=== PATIENT | male | born 1970 | race African-American/Black ===

== ENCOUNTER 2018-01-07 03:05 | Emergency (ER) | payer OTHER ==
[~2018-01-07] VITALS: Ht 172.7 cm; Wt 72.6 kg
[2018-01-07] MEDS ORDERED: NKM (03:09)
[2018-01-07] MEDS ORDERED: Augmentin 875mg Tab ORAL ONE (03:30)
[2018-01-07] MEDS ORDERED: Tetanus/Diptheria/Pertussis Vaccine 0.5ml Syr IM ONE (03:30)
[2018-01-07] MEDS ORDERED: Morphine Sulfate 4mg/ml Inj IM ONE (03:30)
[2018-01-07] MEDS ORDERED: Ketorolac 30mg Inj IM ONE (03:30)
[2018-01-07] MEDS ORDERED: Bacitracin Oint UD TOPIC ONE (03:45)
--- NOTE | 2018-01-07 03:55 | Emergency Room Report ---
History of Present Illness General Chief Complaint: Medical Clearance Source: Patient Present Illness HPI 47-year-old male presents ED for evaluation. Patient is in police custody. He is here for medical clearance. Per [employer] patient was bitten by their police dog during arrest. Tetanus unknown. Notes bite lowe to face, chest, right leg. Pain is throbbing, 10 out of 10, nonradiating. Denies any other injuries. No other aggravating or relieving factors. Denies any other associated symptoms Allergies: Coded Allergies: No Known Allergies (Unverified , 01/07/18) Patient History Past Medical History: psych hx Past Surgical History: none Pertinent Family History: none Social History: Denies: smoking, alcohol use, drug use Immunizations: UTD Reviewed Nursing Documentation: PMH: Agreed; PSxH: Agreed Nursing Documentation-PMH History Of Psychiatric Problem: Yes - PTSD Review of Systems All Other Systems: negative except mentioned in HPI Physical Exam Vital Signs Date Time Temp Pulse Resp B/P (MAP) Pulse Ox O2 Delivery O2 Flow Rate FiO2 01/07/18 03:05 98.0 115 16 141/98 97 Room Air 98.1 Sp02 EP Interpretation: reviewed, normal General Appearance: no apparent distress, alert, GCS 15, non-toxic Head: normocephalic, atraumatic Eyes: bilateral eye normal inspection, bilateral eye PERRL ENT: hearing grossly normal, normal pharynx, no angioedema, normal voice Neck: full range of motion, supple/symm/no masses Respiratory: chest non-tender, lungs clear, normal breath sounds, speaking full sentences Cardiovascular #1: regular rate, rhythm, no edema Cardiovascular #2: 2+ carotid (R), 2+ carotid (L), 2+ radial (R), 2+ radial (L) , 2+ dorsalis pedis (R), 2+ dorsalis pedis (L) Gastrointestinal: normal bowel sounds, non tender, soft, non-distended, no guarding, no rebound Rectal: deferred Genitourinary: normal inspection, no CVA tenderness Musculoskeletal: back normal, gait/station normal, normal range of motion, non- tender Neurologic: alert, oriented x3, responsive, motor strength/tone normal, sensory intact, speech normal Psychiatric: judgement/insight normal, memory normal, mood/affect normal, no suicidal/homicidal ideation Reflexes: 3+ bicep (R), 3+ bicep (L), 3+ tricep (R), 3+ tricep (L), 3+ knee (R) , 3+ knee (L) Skin: other - bite nickie to forehead, chest, abrasions - R knee Lymphatic: no adenopathy Medical Decision Making Diagnostic Impression: Primary Impression: Dog bite Qualified Codes: W54.0XXA - Bitten by dog, initial encounter Additional Impression: Medical clearance for incarceration ER Course Hospital Course 47-year-old male presents ED for intermediate clearance. Status post dog bite Differential diagnoses include: abscess, cellulitis, ankle fracture, dislocation Clinical course Patient placed on stretcher. After initial history and physical, wound is irrigated. I ordered pain medications, tetanus and augmentin Patient is medically clear for incarceration. I'll prescribe antibiotics Diagnosis -dog bite, medical clearance for incarceration Stable and discharged to home with prescription Rx motrin, augmentin. Followup with PMD. Return to ED if symptoms recur or worsen Last Vital Signs Date Time Temp Pulse Resp B/P (MAP) Pulse Ox O2 Delivery O2 Flow Rate FiO2 01/07/18 03:05 98.0 115 16 141/98 97 Room Air 98.1 Status: improved Disposition: D/C TO LAW ENFORCEMENT IN [facility]UST Condition: Stable Scripts Ibuprofen* (MOTRIN*) 600 Mg Tablet 600 MG ORAL Q8H PRN for For Pain, #30 TAB 0 Refills Prov: Kel Stevens MD 01/07/18 Amoxicillin/Potassium Clav 875-125* (AUGMENTIN 875-125 TABLET*) 1 Each Tablet 1 TAB ORAL TWICE A DAY for 10 Days, #20 TAB Prov: Kel Stevens MD 01/07/18 Referrals: NOT CHOSEN IPA/,REFERRING (PCP) Kel Stevens MD January 07, 2018 03:55
[2018-01-07] MEDS ORDERED: AUGMENTIN 875-1 EAC1 ORAL (03:59)
[2018-01-07] MEDS ORDERED: IBUPROFEN600 MG ORAL (03:59)
[2018-01-07 04:00] VITALS: BP 138/97
[2018-01-07 04:05] VITALS: BP 138/97
== END 2018-01-07 04:05 ==
LOC: EDBD 03:05 → EMR 03:28
DX: S01.85XA Open bite of other part of head, initial encounter (principal); S21.159A Open bite of unspecified front wall of thorax without penetration into thoracic cavity, initial encounter; S80.211A Abrasion, right knee, initial encounter; W54.0XXA Bitten by dog, initial encounter; Y92.89 Other specified places as the place of occurrence of the external cause; Z23 Encounter for immunization
CPT/HCPCS: 90471; 90715; 96372; 99284; J1885; J2270